=== PATIENT | male | born 1945 ===

== ENCOUNTER 2018-04-20 10:20 | Emergency (ER) | payer OTHER ==
[2018-04-20 11:10] VITALS: BMI 29.9
[2018-04-20 11:16] VITALS: TEMP 98.3
--- NOTE | 2018-04-20 12:14 | ED PDOC ---
Arrival/HPI - General Chief Complaint: Trauma Time Seen by Provider: 04/20/18 11:35 Historian: Patient - History of Present Illness Narrative History of Present Illness (Text): 04/20/18 11:30 73 year old [place]an-speaking male, with past medical history of hypertension and diabetes, presents to the Emergency Department complaining of neck pain s/p fall 4 days ago. Patient states he was about to sit on a chair when he slipped and fell on the floor. Patient denies hitting his head or any loss of consciousness at the time. Patient was able to ambulate without difficulty following the episode but informs mild neck discomfort worsening over the past few days. Patient informs pain is localized to the middle of the neck and is non -radiating. Patient denies any fever, chills, nausea, vomiting, diarrhea, abdominal pain, chest pain, shortness of breath, cough, headache, dizziness, back pain, or any other complaints. Time/Duration: < week Symptom Onset: Gradual Symptom Course: Unchanged Quality: Aching Activities at Onset: Light Context: Home Past Medical History - Provider Review Nursing Documentation Reviewed: Yes - Cardiac Hx Cardiac Disorders: Yes Hx Hypertension: Yes - Endocrine/Metabolic Hx Endocrine Disorders: Yes Hx Diabetes Mellitus Type 2: Yes - Psychiatric Hx Substance Use: No Family/Social History - Physician Review Nursing Documentation Reviewed: Yes Family/Social History: No Known Family HX Smoking Status: Never Smoked Hx Alcohol Use: No Hx Substance Use: No Allergies/Home Meds Allergies/Adverse Reactions: Allergies No Known Allergies Allergy (Verified 04/20/18 11:10) Home Medications: Home Meds Medication Instructions Recorded Confirmed Unobtainable 04/20/18 04/20/18 Review of Systems - Physician Review All systems were reviewed & negative as marked: Yes - Review of Systems Constitutional: absent: Fevers Respiratory: absent: SOB, Cough Cardiovascular: absent: Chest Pain, MOISE Gastrointestinal: absent: Abdominal Pain, Diarrhea, Nausea, Vomiting Musculoskeletal: Neck Pain. absent: Back Pain Neurological: absent: Headache, Dizziness Physical Exam Vital Signs Reviewed: Yes Vital Signs Temp Pulse Resp BP Pulse Ox 04/20/18 13:20 90 17 150/87 97 04/20/18 11:11 98.3 F 18 L 97 H 156/88 H 97 Temperature: Afebrile Blood Pressure: Normal Pulse: Regular Respiratory Rate: Normal Appearance: Positive for: Well-Appearing, Non-Toxic, Comfortable Pain Distress: None Mental Status: Positive for: Alert and Oriented X 3 - Systems Exam Head: Present: Atraumatic, Normocephalic Pupils: Present: PERRL Extroacular Muscles: Present: EOMI Conjunctiva: Present: Normal Mouth: Present: Moist Mucous Membranes Neck: Present: Normal Range of Motion, MIDLINE TENDERNESS (mild). No: Paraspinal Tenderness Respiratory/Chest: Present: Clear to Auscultation, Good Air Exchange. No: Respiratory Distress, Accessory Muscle Use Cardiovascular: Present: Regular Rate and Rhythm, Normal S1, S2. No: Murmurs Abdomen: No: Tenderness, Distention, Peritoneal Signs Back: Present: Normal Inspection Upper Extremity: Present: Normal Inspection. No: Cyanosis, Edema Lower Extremity: Present: Normal Inspection. No: Edema Neurological: Present: GCS=15, CN II-XII Intact, Speech Normal Skin: Present: Warm, Dry, Normal Color. No: Rashes Psychiatric: Present: Alert, Oriented x 3, Normal Insight, Normal Concentration Medical Decision Making ED Course and Treatment: 04/20/18 12:00 Impression: 73 year old male presents to the Emergency Department complaining of neck pain s/p fall. Plan: -- CT of head -- CT of cervical spine -- Reassess and disposition Prior Visits: Notes and results from previous visits were reviewed. Progress Notes: 04/20/18 14:02 CT of head reviewed by radiologist, shows: No intracranial hemorrhage. Moderate chronic white matter ischemic change. Otherwise unremarkable. CT of neck/soft tissue reviewed by radiologist, shows: No fracture/ dislocation. Degenerative disc disease at C5-6 and C6-7 with mild central stenosis at C6-7. Midline disc herniation at C4-5. Possible muscular spasm. Mass in the inferior left lobe of the thyroid. Further evaluation with thyroid ultrasound examination is advised. 04/20/18 14:15 Patient was made aware of his imaging results. Patient states he wants to go home because he is hungry. Patient was provided food and agrees to get US done. 04/20/18 15:48 US of thyroid reviewed by radiologist, shows 2.1 cm exophytic mass lower pole left lobe of thyroid, with coarse calcification. Consider further evaluation with ultrasound-guided percutaneous biopsy. Additional small nonspecific nodules as described. - RAD Interpretation Radiology Orders: 04/20/18 11:47 CERVICAL SPINE W/O CONTRAST [CT] Stat HEAD W/O CONTRAST [CT] Stat 04/20/18 13:52 THYROID [US] Stat - Scribe Statement The provider has reviewed the documentation as recorded by the Scribe Roz Casanova. All medical record entries made by the Scribe were at my direction and personally dictated by me. I have reviewed the chart and agree that the record accurately reflects my personal performance of the history, physical exam, medical decision making, and the department course for this patient. I have also personally directed, reviewed, and agree with the discharge instructions and disposition. Disposition/Present on Arrival - Present on Arrival Any Indicators Present on Arrival: No History of DVT/PE: No History of Uncontrolled Diabetes: No Urinary Catheter: No History of Decub. Ulcer: No History Surgical Site Infection Following: None - Disposition Have Diagnosis and Disposition been Completed?: Yes Diagnosis: Thyroid mass of unclear etiology, Contusion of neck Disposition: HOME/ ROUTINE Disposition Time: 15:38 Patient Plan: Discharge Patient Problems: Current Active Problems Problem Status Onset Contusion of neck Acute Thyroid mass of unclear etiology Acute Condition: GOOD Discharge Instructions (ExitCare): Contusion (DC), Thyroid Nodules Print Language: KAZAKH Additional Instructions: Mr Leung..... You have nodules on your thyroid that need to be biopsied. Please follow up with the ENT Doctor as soon as you can. Best- Dr. Lino Wu Referrals: Dayday Carrera DO [Staff Provider] - Follow up with primary Forms: [employer] (Cro[place]ian)
--- NOTE | 2018-04-20 13:15 | CT ---
Date of service: 04/20/2018 PROCEDURE: CT HEAD WITHOUT CONTRAST. HISTORY: Fall, Pain at base of skull and high cervical area COMPARISON: None available. TECHNIQUE: Axial computed tomography images were obtained through the head/brain without intravenous contrast. Radiation dose: Total exam DLP = 775.89 mGy-cm. This CT exam was performed using one or more of the following dose reduction techniques: Automated exposure control, adjustment of the mA and/or kV according to patient size, and/or use of iterative reconstruction technique. FINDINGS: HEMORRHAGE: No intracranial hemorrhage. BRAIN: No mass effect or edema. Minimal atrophy. Moderate patchy and confluent periventricular and deep white matter microvascular ischemic change. No evidence of acute infarct. VENTRICLES: Unremarkable. No hydrocephalus. CALVARIUM: Unremarkable. PARANASAL SINUSES: Minimal chronic sphenoid sinusitis. MASTOID AIR CELLS: Unremarkable as visualized. No inflammatory changes. OTHER FINDINGS: None. IMPRESSION: No intracranial hemorrhage. Moderate chronic white matter ischemic change. Otherwise unremarkable.
--- NOTE | 2018-04-20 13:28 | CT ---
Date of service: 04/20/2018 PROCEDURE: CT Cervical Spine without contrast HISTORY: Fall, Pain at base of skull and high cervical area COMPARISON: None available. TECHNIQUE: Axial computed tomography images were obtained of the cervical spine without the use of intravenous contrast. Coronal and sagittal reformatted images were created and reviewed. Radiation dose: Total exam DLP = 513.53 mGy-cm. This CT exam was performed using one or more of the following dose reduction techniques: Automated exposure control, adjustment of the mA and/or kV according to patient size, and/or use of iterative reconstruction technique. FINDINGS: VERTEBRAE: The vertebral bodies are maintained in height. Normal alignment is maintained. There is straightening of the normal lordotic curvature indicating possible muscular spasm. The atlantoaxial articulation and odontoid process are intact. DISCS/SPINAL CANAL/NEURAL FORAMINA: There is multilevel degenerative disc disease. There is marked narrowing at the C5-6 and C6-7 intervertebral disc spaces associated with osteophyte formation. There is mild central spinal stenosis noted at the C6-7 intervertebral disc space level. There is probable small central disc herniation incidentally noted at the C4-5 level. PARASPINAL SOFT TISSUES: There is a 2.3 cm mass with associated coarse calcification arising from the inferior pole of the left thyroid lobe, protruding into the thoracic inlet. Further evaluation with thyroid ultrasound examination is advised. OTHER FINDINGS: None. IMPRESSION: No fracture/ dislocation. Degenerative disc disease at C5-6 and C6-7 with mild central stenosis at C6-7. Midline disc herniation at C4-5. Possible muscular spasm. Mass in the inferior left lobe of the thyroid. Further evaluation with thyroid ultrasound examination is advised.
--- NOTE | 2018-04-20 15:18 | US ---
Date of service: 04/20/2018 HISTORY: mass seen on cervical spine ct left side TECHNIQUE: Sonographic evaluation of the thyroid gland. COMPARISON: CT cervical spine 04/20/2018 FINDINGS: RIGHT LOBE: Measures 4.3 x 1.1 x 1.3 cm. Heterogeneous echotexture. Normal vascularity. Nodules: Complex nodule, possibly cystic with central septation, 4 x 7 x 7 mm, mid to lower right lobe. No other mass identified. LEFT LOBE: Measures 5.0 x 1.4 x 1.4 cm. Heterogeneous echotexture. Normal vascularity. Nodules: Mildly exophytic mass lower pole left lobe, solid, containing some coarse calcifications, 2.1 x 1.6 x 2.0 cm. Consider evaluation with ultrasound-guided percutaneous biopsy, given the size and presence of calcifications. Hypoechoic solid nodule in lower pole left lobe, 3 mm. No other mass identified. ISTHMUS: Measures 0.4 cm. Normal echotexture and flow. Nodules: None OTHER FINDINGS: None . IMPRESSION: 2.1 cm exophytic mass lower pole left lobe of thyroid, with coarse calcification. Consider further evaluation with ultrasound-guided percutaneous biopsy. Additional small nonspecific nodules as described.
[2018-04-20 16:05] VITALS: BP 151/85; PULSE 88; RESP 18; O2SAT 98
== END 2018-04-20 15:45 | disposition home or self-care (01) ==
LOC: ED 10:20
DX: S10.93XA Contusion of unspecified part of neck, initial encounter (principal); W01.0XXA Fall on same level from slipping, tripping and stumbling without subsequent striking against object, initial encounter; E11.9 Type 2 diabetes mellitus without complications; I10 Essential (primary) hypertension; E07.9 Disorder of thyroid, unspecified